=== PATIENT | female | born 1990 | race Caucasian/White ===

== ENCOUNTER 2023-06-16 09:43 | Outpatient (CLI) | payer OTHER, SELFPAY ==
[2023-06-16 12:07] LABS: Glucose 1 Hour PP 50gm Dose 130 mg/dL; Hematocrit 32.2 % (37.0-47.0); Hemoglobin 10.5 g/dL (12.0-15.0)
[2023-06-16 12:50] LABS: HIV 1/2 Ab P24 Ag Result Negative (Negative)
== END 2023-06-16 09:44 | disposition home or self-care (01) ==
LOC: ANHLAB 09:48
PROVIDERS: Visit Provider Obstetrics & Gynecology
DX: Z34.90 Encounter for supervision of normal pregnancy, unspecified, unspecified trimester (principal); Z3A.00 Weeks of gestation of pregnancy not specified
CPT/HCPCS: 36415; 82947; 85014; 85018; 86703; G0432

== ENCOUNTER 2023-08-17 16:43 | Outpatient (CLI) | payer OTHER, SELFPAY ==
[2023-08-17 17:13] VITALS: BP 124/74; PULSE 75
[2023-08-17 17:15] VITALS: BP 116/77; PULSE 73
[2023-08-17 17:30] VITALS: BP 119/75; PULSE 75
[2023-08-17 17:31] LABS: Alanine Aminotransferase 23 U/L (6-35); Albumin Level 3.5 g/dL (3.5-5.1); Alkaline Phosphatase 119 U/L (38-126); Anion Gap 7 mmol/L (8-16); Aspartate Amino Transferase 35 U/L (14-36); Basophils Percent Auto 0.3 % (0.2-1.2); Bilirubin,Total 0.4 mg/dL (0.2-1.3); Blood Urea Nitrogen 9 mg/dL (7-17); Calcium 9.1 mg/dL (8.4-10.2); Carbon Dioxide 24 mmol/L (22-30); Chloride 103 mmol/L (98-107); Eosinophils Absolute Auto 0.1 K/mm3 (0-0.3); Eosinophils Percent Auto 0.6 % (0-4.4); Estimated Glomerular Filt Rate > 60; Glucose 75 mg/dL (65-110); Hematocrit 32.3 % (37.0-47.0); Hemoglobin 10.6 g/dL (12.0-15.0); Immature Granulocyte Absolute 0.11 K/mm3 (0.00-0.031); Immature Granulocyte Percent A 1.3 % (0-0.5); Lymphocytes Percent Auto 18.4 % (18.3-44.2); Mean Corpuscular HGB Conc 32.8 g/dl (32-36); Mean Corpuscular Hemoglobin 33.9 pg (26-34); Mean Corpuscular Volume 103.2 fl (80-100); Mean Platelet Volume 10.2 fl (7.4-10.4); Monocytes Absolute Auto 0.6 K/mm3 (0.1-0.6); Monocytes Percent Auto 7.2 % (2.6-8.5); Neutrophils Absolute Auto 6.3 K/mm3 (1.3-6.7); Neutrophils Percent Auto 72.2 % (45.5-73.1); Platelet Count Result 183 k/mm3 (150-375); Potassium 3.6 mmol/L (3.4-5.0); Red Blood Count 3.13 M/mm3 (4.2-5.4); Red Cell Distribution Width 12.8 % (11.5-14.5); Sodium 134 mmol/L (137-145); Uric Acid 2.6 mg/dL (2.5-7.5); White Blood Count 8.7 K/mm3 (4.5-10.0)
[2023-08-17 17:45] VITALS: BP 121/71; PULSE 76
[2023-08-17 17:46] LABS: Creatinine Urine 24.9 mg/dL; Total Protein Urine Random 12 mg/dL; Ur Ttl Prot Creatinine Ratio 0.48 mg/mg (0-0.20)
[2023-08-17 17:55] LABS: Appearance Urine Clear (Clear); Bacteria Urine None Seen /hpf; Bilirubin Urine Negative (Negative); Blood Urine Negative (Negative); Color Urine Yellow (Yellow); Glucose Urine UA Negative (Negative); Ketones Urine Negative (Negative); Leukocyte Esterase Ur 2+ LEU/UL (NEGATIVE); Need Manual Microscopic Reviewed; Nitrate Urine Negative (Negative); Non Pathogenic Casts 0-2; Protein Urine Negative (Negative); RBC Urine 0-2 /hpf (0-2); Specific Grav Ur 1.005 (1.001-1.035); Squamous Epithelial Cell Urine Occasional /hpf (Few); Urobilinogen Urine 0.2 mg/dL (<2.0); WBC Urine 0-5 /hpf (0-3)
[2023-08-17 17:57] LABS: Add Urine Microscopic? YES
[2023-08-17 18:00] VITALS: BP 115/67; PULSE 78
--- NOTE | 2023-08-17 18:07 | PC.NURSE ---
Called Dr. Diggs with lab results and BPs. Orders received to D/ home and schedule induction for 08/22.
== END 2023-08-17 18:25 | disposition home or self-care (01) ==
LOC: ANHOBOP 16:47 → ANHOBPP 16:47
PROVIDERS: Visit Provider Obstetrics & Gynecology
DX: O13.9 Gestational [pregnancy-induced] hypertension without significant proteinuria, unspecified trimester (principal); Z3A.00 Weeks of gestation of pregnancy not specified
CPT/HCPCS: 36415; 59025; 80053; 81001; 82570; 84156; 84550; 85025; 87086; 99199

== ENCOUNTER 2023-08-22 16:03 | Inpatient (IN) | payer OTHER, SELFPAY ==
[2023-08-22] VITALS (21 sets, daily range): BP systolic 96–129; BP diastolic 50–81; PULSE 73–101; RESP 17; TEMP 36.7; BMI 29.0
--- NOTE | 2023-08-22 16:32 | LDADM ---
This patient, Tanja Walters, was admitted to Labor/Delivery/Recovery 104 on 08/22/23 at 16:03. Plans for labor, pain management and were discussed with patient. Patient/family oriented to hospital policies and general routines including ID bracelet, bed and alarms, visiting hours, pain management, procedures, bathroom and other care routines, personal items, smoking policy, room service/diet and guest tray routines, security routines, and visiting hours. Patient/Family are encouraged to report perceived risks to care and to ask questions if they do not understand what they are told or what they should do. See OBIX for further documentation.
[2023-08-22 16:45] LABS: Basophils Percent Auto 0.2 % (0.2-1.2); Eosinophils Percent Auto 0.1 % (0-4.4); Hematocrit 33.3 % (37.0-47.0); Hemoglobin 11.3 g/dL (12.0-15.0); Immature Granulocyte Absolute 0.07 K/mm3 (0.00-0.031); Immature Granulocyte Percent A 0.8 % (0-0.5); Lymphocytes Absolute Auto 1.41 K/mm3 (0.9-3.2); Lymphocytes Percent Auto 16.6 % (18.3-44.2); Mean Corpuscular HGB Conc 33.9 g/dl (32-36); Mean Corpuscular Hemoglobin 34.5 pg (26-34); Mean Corpuscular Volume 101.5 fl (80-100); Mean Platelet Volume 10.6 fl (7.4-10.4); Monocytes Absolute Auto 0.5 K/mm3 (0.1-0.6); Monocytes Percent Auto 5.9 % (2.6-8.5); Neutrophils Absolute Auto 6.5 K/mm3 (1.3-6.7); Neutrophils Percent Auto 76.4 % (45.5-73.1); Platelet Count Result 195 k/mm3 (150-375); Red Blood Count 3.28 M/mm3 (4.2-5.4); Red Cell Distribution Width 12.6 % (11.5-14.5); White Blood Count 8.5 K/mm3 (4.5-10.0)
[2023-08-22] MEDS: DINOPROSTONE 10 MG VAG INSERT VAGINAL (16:50)
[2023-08-22 16:57] LABS: Alanine Aminotransferase 22 U/L (6-35); Albumin Level 3.6 g/dL (3.5-5.1); Alkaline Phosphatase 127 U/L (38-126); Anion Gap 7 mmol/L (8-16); Aspartate Amino Transferase 34 U/L (14-36); Bilirubin,Total 0.5 mg/dL (0.2-1.3); Blood Urea Nitrogen 9 mg/dL (7-17); Calcium 9.3 mg/dL (8.4-10.2); Carbon Dioxide 20 mmol/L (22-30); Chloride 106 mmol/L (98-107); Estimated CRCL calculation 145 ml/min; Estimated Glomerular Filt Rate > 60; Glucose 109 mg/dL (65-110); Potassium 3.7 mmol/L (3.4-5.0); Sodium 133 mmol/L (137-145)
--- NOTE | 2023-08-22 18:57 | WPDANESEPP ---
Anes - Eval Pre Procedure Procedure: labor epidural Date/Time: 08/22/23 18:57 Pre Op Diagnosis: Induction of Labor Patient Data Age: 33 Gender: F Height: 1.68 m Weight: 81.5 kg Last Vital Signs Pulse 87 08/22/23 18:16 BP 114/71 08/22/23 18:16 O2 Del Method Room Air 08/22/23 16:31 Allergies Allergy/AdvReac Type Severity Reaction Status Date / Time No Known Allergies Allergy Verified 08/22/23 16:27 Home Medications Medication Instructions Recorded Confirmed Type aspirin 81 mg capsule 81 mg PO DAILY 08/22/23 08/22/23 History famotidine 20 mg tablet (Pepcid) 20 mg PO BID 08/22/23 08/22/23 History labetalol 100 mg tablet 100 mg PO BID 08/22/23 08/22/23 History sertraline 50 mg tablet 50 mg PO DAILY 08/22/23 08/22/23 History Laboratory Tests 08/22/23 16:25 WBC 8.5 K/mm3 (4.5-10.0) RBC 3.28 L M/mm3 (4.2-5.4) Hgb 11.3 L g/dL (12.0-15.0) Hct 33.3 L % (37.0-47.0) MCV 101.5 H fl (80-100) MCH 34.5 H pg (26-34) MCHC 33.9 g/dl (32-36) RDW 12.6 % (11.5-14.5) Plt Count 195 k/mm3 (150-375) MPV 10.6 H fl (7.4-10.4) Immature Gran % (Auto) 0.8 H % (0-0.5) Neut % (Auto) 76.4 H % (45.5-73.1) Lymph % (Auto) 16.6 L % (18.3-44.2) [place] % (Auto) 5.9 % (2.6-8.5) Eos % (Auto) 0.1 % (0-4.4) Baso % (Auto) 0.2 % (0.2-1.2) Lymph # (Auto) 1.41 K/mm3 (0.9-3.2) [place] # (Auto) 0.5 K/mm3 (0.1-0.6) Eos # (Auto) 0.0 K/mm3 (0-0.3) Baso # (Auto) 0.0 K/mm3 (0.0-0.1) Abs Immat Gran (auto) 0.07 H K/mm3 (0.00-0.031) Absolute Neuts (auto) 6.5 K/mm3 (1.3-6.7) Absolute Nucleated RBC 0.0 K/mm3 (0.0-0.012) Nucleated RBC % 0.0 % (0.0-0.2) Sodium 133 L mmol/L (137-145) Potassium 3.7 mmol/L (3.4-5.0) Chloride 106 mmol/L (98-107) Carbon Dioxide 20 L mmol/L (22-30) Anion Gap 7 L mmol/L (8-16) BUN 9 mg/dL (7-17) Creatinine 0.50 L mg/dL (0.7-1.0) Estim Creat Clear Calc 145 ml/min Estimated GFR > 60 (59 - ) Glucose 109 mg/dL (65-110) Calcium 9.3 mg/dL (8.4-10.2) Total Bilirubin 0.5 mg/dL (0.2-1.3) AST 34 U/L (14-36) ALT 22 U/L (6-35) Alkaline Phosphatase 127 H U/L (38-126) Total Protein 7.0 g/dL (6.3-8.2) Albumin 3.6 g/dL (3.5-5.1) RPR Pending Blood Type O Positive Antibody Screen Negative Patient hx anesthesia problems: none Family hx anesthesia problems: none Results Review: All pre-operative results and documents have been reviewed as part of the pre-operative evaluation. [facility] Past Medical History Medical History Anxiety FH: HTN (hypertension) IUGR (intrauterine growth restriction) Family History Family History Father Hypertension Cerebrovascular accident Mother Anxiety Depression Grandparent TIA (transient ischemic attack) Lung cancer Sibling Mitral valve prolapse Social History Social History Smoking status: Never smoker Second hand tobacco smoke exposure: No Substance use: never Lack of Transportation: No Lack of Food: Never True Current Housing: I Have Housing Concerned About Future Housing: No Difficulty Paying Gas/Electric Bills: No Difficulty Paying for Meds: No Currently Unemployed: No Education: Associate Degree Difficulty w/ Childcare or Family Care: No Spiritual care concerns: No Exam Day of Procedure 08/22/23 18:57 Patient weight: overweight Heart: regular rate and rhythm Lungs: normal air movement Airway: Mallampati scale Neurological: alert and oriented
[2023-08-22] MEDS: SERTRALINE HCL 50 MG TABLET PO (22:47)
[2023-08-22] MEDS: ACETAMINOPHEN 500 MG TABLET 1000 MG PO (22:55)
[2023-08-22] MEDS: fentaNYL CITRATE INJ (*CRX) 100 MCG/2 ML VIAL 50 MCG IV PUSH (23:03)
[2023-08-23] VITALS (223 sets, daily range): BP systolic 83–150; BP diastolic 45–101; PULSE 67–140; RESP 15–18; TEMP 36.2–37.2; O2SAT 93–100
[2023-08-23] MEDS: fentaNYL CITRATE INJ (*CRX) 100 MCG/2 ML VIAL 50 MCG IV PUSH (03:53)
[2023-08-23] MEDS: LACTATED RINGERS 1,000 ML 125 ML IV CONT ×3 (05:12→13:04)
[2023-08-23] MEDS: OXYTOCIN 30 UNITS/NS 500 ML 30 UNITS/500 ML BAG 6 UNITS IV CONT (05:13)
[2023-08-23] MEDS: fentaNYL CITRATE INJ (*CRX) 100 MCG/2 ML VIAL IV PUSH (05:32)
[2023-08-23] MEDS: PHENYLEPHRINE 1,000 MCG/10 ML SYRINGE 100 MCG IV PUSH (08:06)
--- NOTE | 2023-08-23 08:44 | PM.IMHP ---
H&P: HPI History of Present Illness Date/Time: 08/23/23 08:44 Chief Complaint: Here for induction of labor Narrative: 33 y/o G1 at 37 6/7 weeks with CHTN, now with IUGR, here for induction of labor. GBS neg. Had Cervidil overnight, has been withdrawn, now receiving oxytocin. Comfortable with epidural. Review of Systems Review of Systems: All systems reviewed & are unremarkable except as noted in HPI and below PMFSH Past Medical History Medical History (Updated 08/23/23 @ 08:50 by Ruperto Diggs MD) Anxiety FH: HTN (hypertension) IUGR (intrauterine growth restriction) Family History Family History Father Hypertension Cerebrovascular accident Mother Anxiety Depression Grandparent TIA (transient ischemic attack) Lung cancer Sibling Mitral valve prolapse Social History Social History Smoking status: Never smoker Second hand tobacco smoke exposure: No Substance use: never Lack of Transportation: No Lack of Food: Never True Current Housing: I Have Housing Concerned About Future Housing: No Difficulty Paying Gas/Electric Bills: No Difficulty Paying for Meds: No Currently Unemployed: No Education: Associate Degree Difficulty w/ Childcare or Family Care: No Spiritual care concerns: No Meds Home Medications and Allergies Home Medications Medication Instructions Recorded Confirmed Type aspirin 81 mg capsule 81 mg PO DAILY 08/22/23 08/22/23 History famotidine 20 mg tablet (Pepcid) 20 mg PO BID 08/22/23 08/22/23 History labetalol 100 mg tablet 100 mg PO BID 08/22/23 08/22/23 History sertraline 50 mg tablet 50 mg PO DAILY 08/22/23 08/22/23 History Allergies Allergy/AdvReac Type Severity Reaction Status Date / Time No Known Allergies Allergy Verified 08/22/23 16:27 Vital Signs Vital Signs - 24 hr 08/22/23 16:28 08/22/23 16:30 08/22/23 16:46 Temperature Pulse Rate 98 100 101 H Respiratory Rate Blood Pressure 128/81 125/78 120/71 Pulse Oximetry Oxygen Delivery 08/22/23 17:01 08/22/23 17:16 08/22/23 17:31 Temperature Pulse Rate 87 86 88 Respiratory Rate Blood Pressure 129/74 118/67 114/71 Pulse Oximetry Oxygen Delivery 08/22/23 17:46 08/22/23 18:01 08/22/23 18:16 Temperature Pulse Rate 90 86 87 Respiratory Rate Blood Pressure 109/69 112/73 114/71 Pulse Oximetry Oxygen Delivery 08/22/23 19:01 08/22/23 19:00 08/22/23 19:31 Temperature 36.7 C Pulse Rate 89 82 Respiratory Rate 17 Blood Pressure 119/80 115/53 L Pulse Oximetry Oxygen Delivery 08/22/23 20:01 08/22/23 20:31 08/22/23 21:01 Temperature Pulse Rate 78 77 90 Respiratory Rate Blood Pressure 96/60 L 111/50 L 113/74 Pulse Oximetry Oxygen Delivery 08/22/23 21:31 08/22/23 22:01 08/22/23 22:31 Temperature Pulse Rate 82 91 79 Respiratory Rate Blood Pressure 123/70 117/64 103/60 Pulse Oximetry Oxygen Delivery 08/22/23 23:01 08/22/23 23:31 08/23/23 00:01 Temperature Pulse Rate 79 73 77 Respiratory Rate Blood Pressure 117/72 120/70 106/49 L Pulse Oximetry Oxygen Delivery 08/23/23 00:31 08/23/23 01:01 08/23/23 01:31 Temperature Pulse Rate 91 73 89 Respiratory Rate Blood Pressure 101/45 L 100/52 L 111/68 Pulse Oximetry Oxygen Delivery 08/23/23 02:01 08/23/23 02:31 08/23/23 03:08 Temperature Pulse Rate 76 78 89 Respiratory Rate Blood Pressure 106/51 L 102/52 L 150/101 H Pulse Oximetry Oxygen Delivery 08/23/23 03:10 08/23/23 03:31 08/23/23 04:01 Temperature Pulse Rate 84 75 82 Respiratory Rate Blood Pressure 138/73 121/77 121/57 L Pulse Oximetry Oxygen Delivery 08/23/23 03:52 08/23/23 01:00 08/22/23 23:00 Temperature 36.6 C 36.8 C 36.7 C Pulse Rate Respiratory Rate 15 Blood Pressure Pulse Oximetry
[2023-08-23] MEDS: SODIUM CHLORIDE 0.9% IV 300 ML 600 ML I-UTERINE (10:30)
[2023-08-23] MEDS: SODIUM CHLORIDE 0.9% IV 1,000 ML 150 ML I-UTERINE (11:30)
--- NOTE | 2023-08-23 13:06 | PM.OBPNLAB ---
Pain Control Date/time seen: 08/23/23 13:06 Comments: Comfortable. Pelvic Exam Dilation (cm): 8 Effacement (%): 100 station: 0 Contractions Contraction frequency: 3 Status Comments: Variable decelerations, resolved with amnioinfusion and position change. Assessment and Plan Plan: continuous present management
[2023-08-23] MEDS: ONDANSETRON INJ 4 MG/2 ML VIAL IV PUSH (13:39)
--- NOTE | 2023-08-23 16:57 | P.PCNOB_ITS ---
OB - Vaginal Delivery Note Procedure Delivery date: 08/23/23 Events: Chronic Hypertension and Intrauterine Growth Restriction (IUGR) Induction method: Per Cervidil Protocol Delivery augmentation: Rupture of Membranes and Pitocin Delivery monitor: External FHT, External Uterine and Internal Uterine Route of delivery: Episiotomy description: None Laceration Description: Perineal - 2nd Degree Delivery repair: vicryl (3-0) Specimen: Yes (cord blood, placenta) Quantitative Blood Loss (ml): 85 Anesthesia type: Epidural Disposition: PACU Complications: None Narrative: 33 y/o G1 at 37 6/7 weeks gestation who presented to the hospital for induction of labor. Cervidil was placed overnight, then withdrawn the next morning. Oxytocin was administered intravenously. Amniotomy was performed with return of clear fluid. She received an epidural for pain control. Her labor progressed and her cervix dilated completely. She pushed with good effort and delivered th e 's head to the perineum. A loose nuchal cord was splinted and the body delivered. The cord was reduced and the nose and mouth were bulb suctioned. After a delay, the cord was clamped and cut. The infant was handed off the field. Cord blood was collected. The placenta delivered spontaneously and was grossly normal in appearance. The usual 3 vessel cord was noted. A second degree midline perineal laceration was sustained. This was reapproximated using 3 0 Vicryl in the usual layered fashion. Excellent hemostasis resulted as did excellent reapproximation of the normal anatomy. Needle and instrument counts were correct. The patient was taken to recovery room in stable condition. The infant went to the nursery in stable condition. I was present and scrubbed for the entire delivery. [place] Baby Date of : 08/23/23 Time of : 16:39 Weeks of gestation at delivery: 37 gender: Female Weight (pounds): 5 Weight (ounces): 15 presentation: vertex position: Right Occiput Anterior Placenta delivery description: Spontaneous and Normal Configuration Cord Vessel Description: 3 Vessels, Nuchal Cord (x1) and Delayed Cord Clamping score one minute: 8 score five minutes: 9
--- NOTE | 2023-08-23 16:59 | P.DS_ITS ---
DS: Admitting Diagnosis Discharge Date 08/25/23 Admitting Diagnosis IUP at 37 6/7 weeks CHTN IUGR DS: Discharge Diagnosis Discharge Diagnosis (1) (normal spontaneous vaginal delivery): Code(s): O80 - Encounter for full-term uncomplicated delivery Status: Acute (2) Chronic hypertension affecting : Code(s): O10.919 - Unspecified pre-existing hypertension complicating , unspecified trimester Status: Acute (3) IUGR (intrauterine growth restriction): Status: Acute OB - DS: Summary OB Procedures : PIH Mgmt OB Procedures Intrapartum: Spontaneous Vag Delivery OB Procedures: : None Peripartum Data Laceration Description: Perineal - 2nd Degree Episiotomy description: None Time Spent with Patient Time attestation: Total time spent providing and/or coordinating discharge services: DS: Data Data Completed and Pending Labs on day of discharge: Labs from last 24 hours 08/22/23 16:25 Blood Type O Positive Antibody Screen Negative Discharge Plan Discharge Attending physician on discharge: Ruperto Diggs Discharging Clinician: Ruperto Diggs Patient Disposition: Home, Self-Care Activity: pelvic rest Diet: regular Discharge Instructions: Call or return if temperature above 100.4? F, increased abdominal pain, increased vaginal bleeding or any new problems. Stand Alone Forms: General Discharge Information Follow-up/Referrals: Ruperto Diggs MD [Physician] - 6 Weeks Discharge Medications: New hydrocodone-acetaminophen 5-325 mg tablet 1 tablet PO Q6H PRN (Reason: pain) Qty: 20 0RF ibuprofen 600 mg tablet 600 mg PO Q6H PRN (Reason: cramps) Qty: 30 0RF Continued famotidine [Pepcid] 20 mg Tablet 20 mg PO BID labetalol 100 mg tablet 100 mg PO BID sertraline 50 mg tablet 50 mg PO DAILY Discontinued aspirin 81 mg Capsule 81 mg PO DAILY Date of admission: 08/22/23 16:03 Primary Care Provider: PHYSICIAN,SMALL PARTS SHAPER OPERATOR Admitting Provider: Ruperto Diggs Attending physician on admission: Ruperto Diggs Condition: Stable
[2023-08-23] MEDS: ACETAMINOPHEN 325 MG TABLET 650 MG PO ×2 (17:16→23:52)
[2023-08-23] MEDS: OXYTOCIN 30 UNITS/NS 500 ML 30 UNITS/500 ML BAG 125 UNITS IV CONT (17:16)
[2023-08-23] MEDS: BENZOCAINE 20% AER SPR (*SP) 56 GM CAN 1 SPRAY TOPICAL (17:47)
[2023-08-23] MEDS: WITCH HAZEL 40 PADS 1 PAD TOPICAL (17:47)
[2023-08-23] MEDS: IBUPROFEN 600 MG TABLET PO (20:38)
[2023-08-23] MEDS: LANOLIN (LANSINOH) 7.5 GM CREAM 1 APPLIC TOPICAL (20:59)
[2023-08-23] MEDS: SERTRALINE HCL 50 MG TABLET PO (21:03)
[2023-08-24] VITALS (8 sets, daily range): BP systolic 107–134; BP diastolic 62–89; PULSE 66–87; RESP 16–18; TEMP 36.1–37.1; O2SAT 97–100
[2023-08-24] MEDS: IBUPROFEN 600 MG TABLET PO ×3 (03:33→20:30)
[2023-08-24 04:37] LABS: Hematocrit 34.4 % (37.0-47.0); Hemoglobin 11.6 g/dL (12.0-15.0)
[2023-08-24] MEDS: MULTIVIT/MIN/PREN/FOL AC/IRON TABLET 1 TAB PO (07:37)
[2023-08-24] MEDS: ACETAMINOPHEN 325 MG TABLET 650 MG PO ×2 (07:38→13:15)
[2023-08-24] MEDS: DOCUSATE SODIUM 100 MG CAPSULE PO ×2 (07:39→15:56)
[2023-08-24] MEDS: LABETALOL HCL 100 MG TABLET PO ×2 (09:12→21:58)
--- NOTE | 2023-08-24 13:13 | PM.OBPNVD ---
OB - PN: Subj Subjective Date/time seen: 08/24/23 13:13 Narrative: Pain OK. OB - PN: Obj Data Labs 08/24/23 03:25 08/22/23 16:25 Labs: Laboratory Results - last 24 hr 08/24/23 03:25 Hgb 11.6 L Hct 34.4 L OB - PN A/P Plan day: 1 Comments: A: PPD#1, doing well. P: Routine care. Exam Psych: Other: AVSS ABD soft, nontender, fundus firm EXT nontender
[2023-08-24 14:30] LABS: Rapid Plasma Reagin Non-Reactive (NonReactive)
--- NOTE | 2023-08-24 15:06 | WPDANLDPN2 ---
Anes-Prog Note L&D Date/Time: 08/24/23 15:06 Comfortable throughout: labor and delivery Neuraxial method: epidural Epidural/Spinal procedure site: clean & non-tender Neuro status: Neuro function grossly intact. Cardiovascular status: normal Respiratory status: normal Airway patency: baseline Mental status: baseline Post-Op hydration status: normal Vital Signs: Last Vital Signs Temp 98.5 F 08/24/23 11:56 Pulse 77 08/24/23 11:56 Resp 16 08/24/23 11:56 BP 107/62 08/24/23 11:56 Pulse Ox 97 08/24/23 11:56 O2 Del Method Room Air 08/23/23 20:52 Pain score (VAS): 0/10 I/O: Intake & Output 08/23/23 08/24/23 08/24/23 23:59 07:59 15:59 Intake Total 500 Balance 500 Post-procedural complaints: none Patient feedback: Patient satisfied with anesthetic care.
[2023-08-24] MEDS: HYDROcodone/acetaminophen (*CRX) 5-325 MG TABLET 1 TAB PO (15:55)
--- NOTE | 2023-08-24 15:57 | PC.NURSE ---
1430 Introductions were made, then consulted with patient to assess needs related to . Mother led the conversation with her?plans to feed?her and the?experience so far. Encouraged understanding of the benefits of skin to skin (demonstrating unwrapping infant and placing upright on her chest), stimulating with massage touch, changing positions to encourage wakefulness, how to watch for early feeding cues, responsive feeding, feeding on demand (aiming for 8-12 times in 24 hours, about every 2-3 hours), milk production, building/maintaining a milk supply, duration of feeding, signs of adequate intake/output and how to record on the feeding sheet. Mother works well with her with encouragement and education. Reviewed positioning and ear, shoulder, hip alignment, supporting the breast to facilitate a deep latch, asymmetrical latch (off-center), leading with the chin with a big, open, wide gape and body close to mother. Infant latched optimally to the both breasts in cross cradle position. Education given to the mother of how to visualize the suckling (with good rocking jaw motion), swallows (dropping of the lower jaw) and how to listen for drinking at the breast (the ka sound). Infant was able to maintain latch without pain to mother protecting the nipple with optimal positioning and latching. Reviewed comfort measures of healing with a warm, wet washcloth to rinse breast, then leave open to air-dry, good handwashing when or touching the breast/nipples to prevent infection. Mother voiced understanding of skin to skin, stimulating with massage touch, responsive feedings, hand expressed colostrum, talking to infant to encourage if it has been 2 -2.5 hours since the start of the last , to call if does not latch, or if there is discomfort with . Resources used for education were facilitated with the mom and baby guide. Inpatient resources provided with business card, feeding sheet, name written on the communication board, and the mom/baby guide. Parents voiced understanding of information, demonstrated learning and will call if there is a request for assistance. Reported to the Primary RN.
[2023-08-24] MEDS: SERTRALINE HCL 50 MG TABLET PO (21:58)
[2023-08-25] MEDS: ACETAMINOPHEN 325 MG TABLET 650 MG PO (05:11)
[2023-08-25] MEDS: HYDROcodone/acetaminophen (*CRX) 5-325 MG TABLET 1 TAB PO ×2 (07:52→11:54)
[2023-08-25] MEDS: IBUPROFEN 600 MG TABLET PO (07:52)
[2023-08-25 08:08] VITALS: BP 106/63; PULSE 73; RESP 18; TEMP 36.7; O2SAT 99
[2023-08-25 08:50] VITALS: PULSE 73
[2023-08-25] MEDS: MULTIVIT/MIN/PREN/FOL AC/IRON TABLET 1 TAB PO (08:50)
[2023-08-25] MEDS: DOCUSATE SODIUM 100 MG CAPSULE PO (08:50)
[2023-08-25] MEDS: LABETALOL HCL 100 MG TABLET PO (08:50)
--- NOTE | 2023-08-25 08:56 | PM.OBPNVD ---
OB - PN: Subj Subjective Date/time seen: 08/25/23 08:56 Narrative: Pain OK. Would like to go home. OB - PN: Obj Data Labs 08/24/23 03:25 08/22/23 16:25 Labs: Laboratory Results - last 24 hr 08/22/23 16:25 RPR Non-reactive OB - PN A/P Plan Comments: A: PPD#2, doing well. P: Home to f/u 6 weeks. Exam Psych: Other: AVSS ABD soft, nontender, fundus firm EXT nontender
--- NOTE | 2023-08-25 10:40 | PC.NURSE ---
Patient viewed the discharge video Mother & Baby Care, The First Two Weeks . Patient was given the opportunity and encouraged to ask questions. Patient verbalized understanding of information shared and has been given the mother/baby guide for home reference.
[2023-08-26 12:05] VITALS: BP 127/75; PULSE 91; RESP 18; TEMP 37.1; O2SAT 99
== END 2023-08-25 12:50 | disposition home or self-care (01) | DRG 807 ==
LOC: ANHLDR 08-23 17:01 → ANHOB2 08-23 20:48
PROVIDERS: Admitting Provider Obstetrics & Gynecology; Visit Provider Obstetrics & Gynecology
DX: O16.4 Unspecified maternal hypertension, complicating childbirth (principal); Z37.0 Single live birth; O36.5930 Maternal care for other known or suspected poor fetal growth, third trimester, not applicable or unspecified; O99.344 Other mental disorders complicating childbirth; F41.9 Anxiety disorder, unspecified; O70.1 Second degree perineal laceration during delivery; O69.81X0 Labor and delivery complicated by cord around neck, without compression, not applicable or unspecified; Z3A.37 37 weeks gestation of pregnancy
CPT/HCPCS: 36415; 80053; 85014; 85018; 85025; 86592; 86850; 86900; 86901; 88307; A9270; J2371; J2405; J2590; J2795; J3010; J7030; J7120

== ENCOUNTER 2025-01-23 08:51 | Outpatient (CLI) | payer OTHER, SELFPAY ==
--- OUTSIDE RECORDS SUMMARY | 2025-01-23 08:57 | XMS_ITS | Encounter Summary ---
Author Organization [facility] Address [address] [place] [address] Care Team Providers Care Continuous Dryout Operator Helper Name Role Phone Unavailable Primary Care Provider Unavailabl e Encounter Details Date Type Department Care Team (Late st Contact Info) Description 01/13/2016 Lab Requisition [facility] [address] [place] [address] Unknown, Provider Social History Tobacco Use Types Packs/Day Years Used Date Smoking Tobacco: Never Smokeless Tobacco: Never Alcohol Use Standard Drinks/Week Comments No 0 (1 standard drink = 0.6 oz pur e alcohol) Comments No Sex and Gender Information Value Date Recorded Sex Assigned at Not on file Legal Sex Female 1:15 AM CDT Gender Identity Not on file Sexual Orientation Not on file documented as of this encounter Plan of Treatment Not on file documented as of this encounter Procedures Procedure Name Priority Date/Time Associated Diagnosis Comments VARICELLA ZOSTER ANTIBODY IGG Routine 01/13/2016 11:20 AM CDT documented in this encounter Results * VARICELLA ZOSTER ANTIBODY IGG (01/13/2016 11:20 AM CDT) Varicella zoster Virus Antibody IgG 1119 Immune >165 index 01/15/2016 12:17 PM CDT [facility] ([facility]) Comment: Negative <135 Equivocal 135 - 165 Positive >165 A positive result generally indicates exposure to the pathogen or administration of specific immunoglobulins, but it is not indication of active infection or stage of disease. Blood specimen (specimen) BLOOD SPECIMEN / Unknown Venipuncture / Unknown 01/13/2016 11:20 AM CDT 01/13/2016 5:27 PM CDT Narrative [facility] ([facility]) - 01/15/2016 12:17 PM CDT Performed at: - [address] [id number] Hem Marker: Jeovanny Donaldson PhD, Phone: [phone] us Provider Unknown LAB - CHEMISTRY ORDERABLES Katia l [facility] [address] [place] [id number] documented in this encounter Visit Diagnoses Not on filedocumented in this encounter
--- OUTSIDE RECORDS SUMMARY | 2025-01-23 08:57 | XMS_ITS | Clinical Summary ---
Author Organization [facility] [employer] Address [address] [place] [address] Care Team Providers Care Instrument Repairer Helper Name Role Phone Unavailable Primary Care Provider Unavailabl e Source Comments [facility] [employer],non-owned Affiliates and Associated Physician Practices is amultiple site organization consisting of ambulatory clinics and hospital sitesin [place], [place], [place] and [place]. This disclosure is being madepursuant to the Care Everywhere program and may not contain all information available regarding this patient. Last updated 18.[employer] Allergies No known active allergies Medications * Be aware that medications may not be up to date on this document. Alwaysverify current medications with the patient. levonorgestrel- ethinyl estradiol (LUTERA) 0.1-20 MG-MCG tablet Take 1 Tab by mouth once daily 1 Packet 11 7 Active phenazopyridine (PYRIDIUM) 200 MG tabletIndicatio ns:Bladder Mucosa Irritation Take 1 tablet by mouth 3 times daily as needed Reasons: Bladder Lining Irritation 15 tablet 8 Active Additional Information Patient not taking.Reported on 06/30/2018 Multiple Vitamins-Minera ls (MULTIVITAMIN ADULT PO) Active Active Problems Problem Noted Date Diagnosed Date Anxiety 10/08/2014 Family History Medical History Relation Name Comments Hypertension Father COPD - Chronic Obstructive Pulmonary Disease Maternal Grandfather Cancer - Other Maternal Grandfather lung Diabetes Maternal Uncle 1 Heart Disease Maternal Uncle 2 Depression Mother Thyroid Disease Sister Relation Name Status Comments Father Maternal Grandfather Maternal Uncle 1 Maternal Uncle 2 Mother Sister Social History Tobacco Use Types Packs/Day Years Used Date Smoking Tobacco: Never Smokeless Tobacco: Never Alcohol Use Standard Drinks/Week Comments No 0 (1 standard drink = 0.6 oz pur e alcohol) Comments No Sex and Gender Information Value Date Recorded Sex Assigned at Not on file Legal Sex Female 1:15 AM CDT Gender Identity Not on file Sexual Orientation Not on file Last Filed Vital Signs Vital Sign Reading Time Taken Comments Blood Pressure 118/70 06/30/2018 3:03 PM CDT Pulse 102 06/30/2018 3:03 PM CDT Temperature 36.7 C (98.1 F) 06/30/2018 3:03 PM CDT Respiratory Rate 16 06/30/2018 3:03 PM CDT Oxygen Saturation 100% 12/09/2016 10:46 AM CDT Inhaled Oxygen Concentration - - Weight 59 kg (130 lb) 06/30/2018 3:03 PM CDT Height 168.9 cm (5' 6.5 ) 06/30/2018 3:03 PM CDT Body Mass Index 20.67 06/30/2018 3:03 PM CDT Plan of Treatment Health Maintenance Due Date Last Done Comments HIV SCREENING 2006 HEPATITIS C SCREENING 06/12/2009 DTAP/TDAP/TD VACCINES (1 - Tdap) 2010 HEPATITIS B VACCINE (1 of 3 - 19+ 3-dose series) 2010 PAP SMEAR 01/13/2020 01/12/2017, 11/11/2012 (Previously completed) COVID-19 VACCINE ( - 2023-2 5 season) 2024 DEPRESSION SCREENING 09/13/2024 INFLUENZA VACCINE (Season Ended) 2025 ZOSTER VACCINE (1 of 2) 2041 HIB VACCINE Aged Out No longer eligi ble based on patient's age to complete this topic HPV VACCINE Aged Out No longer eligi ble based on patient's age to complete this topic MENINGOCOCCAL (Group B) VACCINE SHARED DECISION-MAKING Aged Out No longer eligible based on patient's age to complete this topic MENINGOCOCCAL GROUPS A/C/Y/W VACCINE Aged Out No longer eligible b ased on patient's age to complete this topic PNEUMOCOCCAL VACCINE Aged Out No long er eligible based on patient's age to complete this topic Procedures Procedure Name Priority Date/Time Associated Diagnosis Comments PAP LB CT+GC RFLX HPV HR IF ASCU Routine 01/12/2017 10:03 AM CDT Routine gynecological examination from Last 3 Months or Most Recently Relevant to Health Maintenance Results * PAP SMEAR LB CT+GC RFLX HPV ASCU (PO REF) (01/12/2017 10:03 AM CDT) Diagnosis [facility] ACCOUNT BILL Comment:NEGATIVE FOR INTRAEP ITHELIAL LESION AND MALIGNANCY. Specimen Adequacy [facility] ACCOUNT BILL Comment:Satisfactory for don luation. No endocervical component is identified. Clinician Provided ICD10 [facility] ACCOUNT BILL Comment:Z01.419 Performed by [facility] ACCOUNT BILL Comment:Lotus Morris, Principal Law Clerk (ASCP) Comment . [facility] ACCOUNT BILL Note [facility] ACCOUNT BILL Comment: The Pap smear is a screening test designed to aid in the detection of premalignant and malignant conditions of the uterine cervix. It is not a diagnostic procedure and should not be used as the sole means of detecting cervical cancer. Both false-positive and false-negative reports do occur. . Note [facility] ACCOUNT BILL Comment: The HPV DNA reflex criteria were not met with this specimen result therefore, no HPV testing was performed. . Chlamydia DEBBIE Thin Prep Negative Negative [facility] ACCOUNT BILL GC DNA Probe Negative Negative [facility] ACCOUNT BILL MICROSCOPIC CYTOLOGIC EXAMINATION OF SMEAR OF SPECIMEN FROM FEMALE GENITAL TRACT PREPARED USING PAPANICOLAOU TECHNIQUE / Unknown 01/12/2017 10:03 AM CDT 01/12/2017 Narrative [facility] ACCOUNT BILL - 01/15/2017 9:18 AM CDT Source.............Cervix;Endocervix LMP / Prev Treat...[id number] No. of containers..01 CYTYC Thin Prep Vial Resulting Agency Comment [facility] [place] [address] [facility] [place] [phone] us Keenan Goode MD LAB - PATHOLOGY/CYTOLOGY ORD ERABLES Final Result [facility] ACCOUNT BILL [address] [place] [address] from Last 3 Months or Most Recently Relevant to Health Maintenance Insurance [employer] [facility] [employer] SELF PAY NO INSURANCE Member Subscriber Plan / Payer (Ef fective for All Dates) Name:Tanja Walters Member ID:Not on file Relation to Subscriber:Not on file Name:TANJA WALTERS Subscriber ID:Not on file Address: [address] [place] [address] Payer ID:Not on file Group ID:Not on file Type:Self Pay Address: [place], [place] [address] [place] [address]
[2025-01-23 11:11] LABS: Hematocrit 32.9 % (37.0-47.0)
[2025-01-23 11:25] LABS: Glucose 1 Hour PP 50gm Dose 152 mg/dL
[2025-01-23 11:47] LABS: Vitamin D 25 Hydroxy 45.2 ng/mL
[2025-01-23 11:55] LABS: Syphilis IgG/IgM Antibody Negative (Negative)
[2025-01-23 12:12] LABS: HIV 1/2 Ab P24 Ag Result Negative (Negative)
== END 2025-01-23 08:52 | disposition home or self-care (01) ==
LOC: ANHLAB 08:53
PROVIDERS: Visit Provider Obstetrics & Gynecology
DX: Z34.90 Encounter for supervision of normal pregnancy, unspecified, unspecified trimester (principal)
CPT/HCPCS: 36415; 82306; 82947; 85014; 85018; 86593; 86703; G0432

== ENCOUNTER 2025-02-16 07:31 | Outpatient (CLI) | payer OTHER, SELFPAY ==
--- OUTSIDE RECORDS SUMMARY | 2025-02-16 07:35 | XMS_ITS | Clinical Summary ---
Author Organization [facility] [employer] Address [address] [facility] [address] Care Team Providers Care Induction Brazer Name Role Phone Unavailable Primary Care Provider Unavailabl e Source Comments [facility] [employer],non-owned Affiliates and Associated Physician Practices is amultiple site organization consisting of ambulatory clinics and hospital sitesin [place], [place] and [place]. This disclosure is being madepursuant to the Care Everywhere program and may not contain all information available regarding this patient. Last updated [email or web address] Allergies No known active allergies Medications * [...] 3:03 PM CDT Height 168.9 cm (5' 6.5) 06/30/2018 3:03 PM CDT Body Mass Index [...] Performed by [facility] ACCOUNT BILL Comment:Lotus Morris, Community Health Promoter (ASCP) Comment . [facility] ACCOUNT BILL Note [...] 9:18 AM CDT Source.............Cervix;Endocervix LMP / Prev Treat...[id number] No. of containers..01 CYTYC Thin Prep Vial Resulting Agency Comment [facility] [place] [address] [facility] [place] [id number] us Keenan Goode MD LAB - PATHOLOGY/CYTOLOGY ORD ERABLES Final Result [facility] ACCOUNT BILL [address] [place] [address] from Last 3 Months or Most Recently Relevant to Health Maintenance Insurance [employer] [facility] SELF PAY NO INSURANCE Member Subscriber Plan / Payer (Ef fective for All Dates) Name:Tanja Walters Member ID:Not on file Relation to Subscriber:Not on file Name:TANJA WALTERS Subscriber ID:Not on file Address: [address] [place] [id number] Payer ID:Not on file Group ID:Not on file Type:Self Pay Address: [facility] [address] [employer] [place] [address]
--- OUTSIDE RECORDS SUMMARY | 2025-02-16 07:35 | XMS_ITS | Encounter Summary ---
Author Organization [facility] Address [address] [place] [address] Care Team Providers Care Marketing Project Coordinator Name Role Phone Unavailable Primary Care Provider Unavailabl e Encounter Details Date Type Department Care Team (Late st Contact Info) Description 01/13/2016 Lab Re[address] [facility] [address] [place] [address] Unknown, Provider Social History Tobacco Use Types [...] >165 index 01/15/2016 12:17 PM CDT [facility] ([facility]) Comment: Negative <135 Equivocal 135 - 165 Positive >165 A positive result generally indicates exposure to the pathogen or administration of specific immunoglobulins, but it is not indication of active infection or stage of disease. Blood specimen (specimen) BLOOD SPECIMEN / Unknown Venipuncture / Unknown 01/13/2016 11:20 AM CDT 01/13/2016 5:27 PM CDT Narrative [facility] ([facility]) - 01/15/2016 12:17 PM CDT Performed at: - [address] [id number] Senior Human Resources Representative: Jeovanny Donaldson PhD, Phone: [phone] us Provider Unknown LAB - CHEMISTRY ORDERABLES Katia l Result [facility] ([facility]) [address] [place] [address] documented in this encounter Visit Diagnoses Not on filedocumented in this encounter
[2025-02-16 08:07] LABS: Glucose Fasting Gestational 101 mg/dL (>/=95)
[2025-02-16 10:11] LABS: Glucose 1 Hour Gest 213 mg/dL (>/=180)
[2025-02-16 11:03] LABS: Glucose 2 Hour Gest 162 mg/dL (>/= 155)
[2025-02-16 11:48] LABS: Glucose 3 Hour Gest 94 mg/dL (>/=140)
== END 2025-02-16 07:32 | disposition home or self-care (01) ==
LOC: ANHLAB 07:33
PROVIDERS: Visit Provider Obstetrics & Gynecology
DX: R73.01 Impaired fasting glucose (principal)
CPT/HCPCS: 36415; 82951; 82952

== ENCOUNTER 2025-03-12 15:16 | Outpatient (CLI) | payer OTHER, SELFPAY ==
--- NOTE | ~2025-03-12 | US_ITS ---
EXAMINATION: US OB follow up DATE: 03/12/2025 15:36 INDICATION: Encounter for screening for growth. Large for gestational age during thir d trimester of . TECHNIQUE: Real-time ultrasound of the pelvis was performed. The interpreting radiologist was not pre sent for the study. COMPARISON: None. FINDINGS: There is a single living fetus in vertex presentation. The placenta is posterior and not low-lying. heart rate is 148 beats per minute (bpm). The amniotic fluid index is 23.5 cm, which is normal . (5th%-95%: 7.5-24.9 cm at C6 weeks estimated gestational age). The following biometric data were obtained: BPD: 8.8 cm -> 35 weeks 5 days Head circumference: 32.2 cm -> 36 weeks 3 days Abdominal circumference: 32.3 cm -> 36 weeks 1 days Femur length: 6.9 cm -> 35 weeks 3 days These measurements are concordant. Head circumference to abdominal circumference ratio: 1.00 (normal range 0.93-1.08). Estimated weight: 2812 g (+/-) 422 g or 6 lbs. 3 oz. (+/-) 15 oz. IMPRESSION: 1. Single living fetus in vertex presentation with heart rate of 148 bpm. 2. Gestational age by ultrasound of 36 weeks 0 day(s) +/- 2 week(s) 4 day(s) with ultrasound estimate d date of delivery (ALIN) of 04/09/2025. Estimated weight is 43rd percentile by Hadlock criteria when 04/07/2025 is used as the ALIN. Please correlate with clinical information or earlier ultrasounds for most accurate ALIN. Reviewed, dictated and finalized at location B. IMPRESSION: 1. Single living fetus in vertex presentation with heart rate of 148 bpm. 2. Gestational age by ultrasound of 36 weeks 0 day(s) +/- 2 week(s) 4 day(s) wi th ultrasound estimated date of delivery (ALIN) of 04/09/2025. Estimated we ight is 43rd percentile by Hadlock criteria when 04/07/2025 is used as the ALIN. Please correlate with clinical information or earlier ultrasounds for most accu rate ALIN.
== END 2025-03-12 15:17 | disposition home or self-care (01) ==
LOC: MICIMG 15:17
PROVIDERS: PCP Obstetrics & Gynecology; Visit Provider Obstetrics & Gynecology
DX: Z36.4 Encounter for antenatal screening for fetal growth retardation (principal)
CPT/HCPCS: 76816

== ENCOUNTER 2025-03-13 09:43 | Outpatient (CLI) | payer OTHER, SELFPAY ==
--- OUTSIDE RECORDS SUMMARY | 2025-03-13 09:57 | XMS_ITS | Encounter Summary ---
Author Organization [facility] Address [address] [facility] [place] [address] Care Team Providers Care Self Defense Instructor Name Role Phone Unavailable Primary Care Provider Unavailabl e Encounter Details Date Type Department Care Team (Late st Contact Info) Description 01/13/2016 Lab Requisition [facility] [address] [place] [address] Unknown, Provider Social History Tobacco Use Types [...] >165 index 01/15/2016 12:17 PM CDT [facility] ([facility]) Comment: Negative <135 Equivocal 135 - 165 Positive >165 A positive result generally indicates exposure to the pathogen or administration of specific immunoglobulins, but it is not indication of active infection or stage of disease. Blood specimen (specimen) BLOOD SPECIMEN / Unknown Venipuncture / Unknown 01/13/2016 11:20 AM CDT 01/13/2016 5:27 PM CDT Narrative [facility] ([facility]) - 01/15/2016 12:17 PM CDT Performed at: - [address] [id number] Barker Peeler: Jeovanny Donaldson PhD, Phone: [phone] us Provider Unknown LAB - CHEMISTRY ORDERABLES Katia l Result [facility] ([facility]) [address] [place] [address] documented in this encounter Visit Diagnoses Not on filedocumented in this encounter
--- OUTSIDE RECORDS SUMMARY | 2025-03-13 09:57 | XMS_ITS | Clinical Summary ---
Author Organization [facility] [employer] Address [address] [facility] [place] [address] Care Team Providers Care Ribbon Weaver Name Role Phone Unavailable Primary Care Provider Unavailabl e Source Comments [facility] [employer],non-owned Affiliates and Associated Physician Practices is amultiple site organization consisting of ambulatory clinics and hospital sitesin [place], [place], [place] and [place]. This disclosure is being madepursuant to the Care Everywhere program and may not contain all information available regarding this patient. Last updated 18.[employer] Allergies No known active allergies Medications * [...] Performed by [facility] ACCOUNT BILL Comment:Lotus Morris, Device Repair Technician (ASCP) Comment . [facility] ACCOUNT BILL Note [...] 9:18 AM CDT Source.............Cervix;Endocervix LMP / Prev Treat...[id number] No. of containers..01 CYTYC Thin Prep Vial Resulting Agency Comment [facility] [place] [address] [facility] [place] [phone] us Keenan Goode MD LAB - PATHOLOGY/CYTOLOGY ORD ERABLES Final Result [facility] ACCOUNT BILL [address] [place] [address] from Last 3 Months or Most Recently Relevant to Health Maintenance Insurance [employer] [facility] SELF PAY NO INSURANCE Member Subscriber Plan / Payer (Ef fective for All Dates) Name:Tanja Walters Member ID:Not on file Relation to Subscriber:Not on file Name:TANJA WALTERS Subscriber ID:Not on file Address: [address] [place] [phone] Payer ID:Not on file Group ID:Not on file Type:Self Pay Address: [facility] [address] [employer] [place] [address]
[2025-03-13 10:16] VITALS: BP 126/84; PULSE 93
[2025-03-13 10:31] VITALS: BP 125/84; PULSE 90
[2025-03-13 10:36] VITALS: BP 125/84; BP 126/84; PULSE 90
[2025-03-13 10:40] LABS: Hematocrit 31.3 % (37.0-47.0); Hemoglobin 10.2 g/dL (12.0-15.0); Immature Granulocyte Percent A 0.4 % (0-0.5); Lymphocytes Absolute Auto 2.55 K/mm3 (0.9-3.2); Mean Corpuscular HGB Conc 32.6 g/dl (32-36); Mean Corpuscular Hemoglobin 31.9 pg (26-34); Mean Corpuscular Volume 97.8 fl (80-100); Nucleated Red Blood Cells Absolute Auto 0.000 K/mm3 (0.0-0.012); Nucleated Red Blood Cells Perc 0.0 % (0.0-0.2); Platelet Count Result 190 k/mm3 (150-375); Red Blood Count 3.20 M/mm3 (4.2-5.4); White Blood Count 8.3 K/mm3 (4.5-10.0)
[2025-03-13 10:46] LABS: Add Urine Microscopic? YES; Appearance Urine Cloudy (Clear); Glucose Urine UA Negative (Negative); Leukocyte Esterase Ur 1+ LEU/UL (Negative); Nitrate Urine Negative (Negative); Non Pathogenic Casts 0-2; Specific Grav Ur 1.017 (1.001-1.035)
[2025-03-13 10:49] LABS: Alanine Aminotransferase 14 U/L (6-35); Albumin Level 3.5 g/dL (3.5-5.1); Alkaline Phosphatase 125 U/L (38-126); Anion Gap 9 mmol/L (4-12); Aspartate Amino Transferase 26 U/L (14-36); Bilirubin,Total 0.2 mg/dL (0.2-1.3); Blood Urea Nitrogen 13 mg/dL (7-17); Calcium 9.4 mg/dL (8.4-10.2); Carbon Dioxide 18 mmol/L (22-30); Chloride 107 mmol/L (98-107); Estimated Glomerular Filt Rate > 60; Glucose 84 mg/dL (65-110); Potassium 4.0 mmol/L (3.4-5.0); Sodium 134 mmol/L (137-145); Total Protein 6.8 g/dL (6.3-8.2); Uric Acid 3.9 mg/dL (2.5-7.5)
--- NOTE | 2025-03-13 11:10 | PC.NURSE ---
Spoke with Dr. Diggs regarding patient's results of [facility] workup. BP and vital signs all within normal range. BP 120's/80's. FHR cat. 1 tracing with no decels noted. No contractions per toco. Reported lab results of ua, cmp, and cbc. OK to discharge per Dr. Diggs. Patient to be seen by Dr. Diggs tomorrow in office.
[2025-03-13 11:24] LABS: Total Protein Urine Random 21 mg/dL; Ur Ttl Prot Creatinine Ratio 0.24 mg/mg (0-0.20)
== END 2025-03-13 11:12 | disposition home or self-care (01) ==
LOC: ANHOBOP 09:48 → ANHLDR 09:54
PROVIDERS: PCP Obstetrics & Gynecology; Visit Provider Obstetrics & Gynecology
DX: O13.9 Gestational [pregnancy-induced] hypertension without significant proteinuria, unspecified trimester (principal); Z3A.00 Weeks of gestation of pregnancy not specified
CPT/HCPCS: 36415; 59025; 80053; 81001; 82570; 84156; 84550; 85025; 87086; 99199

== ENCOUNTER 2025-03-22 10:04 | Inpatient (IN) | payer OTHER, SELFPAY ==
--- NOTE | 2025-03-21 09:06 | P.HP_ITS ---
H&P: HPI History of Present Illness Date/Time: 03/21/25 09:06 Chief Complaint: Here for induction of labor Narrative: 34 y/o at 37 4/7 weeks with longstanding chronic hypertension. Her first labor was induced at 37 6/7 weeks, resulting in vaginal delivery of a girl weighing 5#5oz. That was complicated by chronic hypertension. In the current she has been taking low dose aspirin since 12 weeks. Anxiety is treated with sertraline 75 mg daily. NIPT low risk. Abnormal GCT, but normal 3hGTT. CFS neg in 2022. No headache, visual field change, or upper abdominal pain. Good movement. Our plan in this has been for early term delivery in the 37-38 week range with the goal of avoiding hypertensive complications. She understands risks/benefits to include the p ossibility of prematurity complications, and elects to proceed with induction of labor. Review of Systems Review of Systems: All systems reviewed & are unremarkable except as noted in HPI and below PMFSH Past Medical History Medical History FH: HTN (hypertension) IUGR (intrauterine growth restriction) Anxiety Family History Family History Father Hypertension Cerebrovascular accident Mother Anxiety Depression Grandparent TIA (transient ischemic attack) Lung cancer Sibling Mitral valve prolapse Social History Social History Smoking status: Never smoker Second hand tobacco smoke exposure: No Substance use: never Do You Feel Safe in your Home?: Yes Lack of Transportation: No Lack of Food: Never True Current Housing: I Have Housing Concerned About Future Housing: No Difficulty Paying Gas/Electric Bills: No Difficulty Paying for Meds: No Currently Unemployed: No Education: Associate Degree Difficulty w/ Childcare or Family Care: No Spiritual care concerns: No Meds Home Medications and Allergies Home Medications ?Medication ?Instructions ?Recorded ?Confirmed ?Type sertraline 50 mg tablet 50 mg PO DAILY 08/22/23 03/14/25 History aspirin 81 mg tablet 81 mg PO DAILY 03/09/25 03/14/25 History vit no.95-ferrous 1 tablet PO DAILY 03/09/25 03/14/25 History fumarate 28 mg-folic acid 800 mcg tablet () cholecalciferol (vitamin D3) 25 25 mcg PO DAILY 03/14/25 03/14/25 History mcg (1,000 unit) capsule Allergies Allergy/AdvReac Type Severity Reaction Status Date / Time No Known Allergies Allergy Verified 03/14/25 09:31 Exam Const: Orientation/consciousness: patient oriented x3 Other: Well-developed, well-nourished female in no acute distress. Neck: Thyroid: thyroid normal Lymphatic: no lymphadenopathy noted (in neck, axilla or inguinal nodes) Resp: Effort & Inspection: normal respiratory effort Auscultation: clear to auscultation bilaterally Cardio: Rate: regular rate Rhythm: regular rhythm Heart sounds: S1 normal heart sound present and S2 normal heart sound present GI: Other: ABD: Soft, nontender, nondistended, gravid. FHR auscultated. No guarding or rebound tenderness. No hepatosplenomegaly. : General: Yes no CVA tenderness Other: Cervix fingertip / 50 / -2 Back/Spine/Pelvis: Back: no CVA tenderness Skin: General skin exam: normal color and no rashes or lesions noted Neuro: General: patient oriented x3 Extrem: Other: Extremities: nontender with no edema Psych: Mental Status: mental status grossly normal Affect: normal affect Assessment and Plan Assessment and plan (1) Chronic hypertension affecting : Code(s): O10.919 - Unspecified pre-existing hypertension complicating , unspecified trimester Status: Acute Assessment and Plan: A: IUP at 37 4/7 weeks with chronic hypertension P: Have offered induction of labor vs expectant management. We have reviewed risks / benefits / alternatives as above, and she elects to undergo induction of labor. Plan Cervidil followed by oxytocin. Anticipate .
[2025-03-22] VITALS (150 sets, daily range): BP systolic 92–145; BP diastolic 53–91; PULSE 76–129; TEMP 36.2–37.2; O2SAT 97–100; BMI 34.1
--- NOTE | 2025-03-22 10:04 | LDADM ---
This patient, Tanja Walters, was admitted to Labor/Delivery/Recovery 104 on 03/22/25 at 10:04. Plans for labor, pain management and were discussed with patient. Patient/family oriented to hospital policies and general routines including ID bracelet, bed and alarms, visiting hours, pain management, procedures, bathroom and other care routines, personal items, smoking policy, room service/diet and guest tray routines, security routines, and visiting hours. Patient/Family are encouraged to report perceived risks to care and to ask questions if they do not understand what they are told or what they should do. See [employer] for further documentation.
--- OUTSIDE RECORDS SUMMARY | 2025-03-22 10:14 | XMS_ITS | Encounter Summary ---
Author Organization [facility] Address [address] [facility] [address] Care Team Providers Care Heavy Equipment Diesel Mechanic Name Role Phone Unavailable Primary Care Provider Unavailabl e Encounter Details Date Type Department Care Team (Late st Contact Info) Description 01/13/2016 Lab Requisition [facility] [address] [place] [address] Unknown, Provider Social History Tobacco Use Types [...] >165 index 01/15/2016 12:17 PM CDT [facility] ([facility]) Comment: Negative <135 Equivocal 135 - 165 Positive >165 A positive result generally indicates exposure to the pathogen or administration of specific immunoglobulins, but it is not indication of active infection or stage of disease. Blood specimen (specimen) BLOOD SPECIMEN / Unknown Venipuncture / Unknown 01/13/2016 11:20 AM CDT 01/13/2016 5:27 PM CDT Narrative [facility] ([facility]) - 01/15/2016 12:17 PM CDT Performed at: - [address] [id number] Travel Rn: Jeovanny Donaldson PhD, Phone: [phone] us Provider Unknown LAB - CHEMISTRY ORDERABLES Katia l [facility]) [address] [place] [address] documented in this encounter Visit Diagnoses Not on filedocumented in this encounter
--- OUTSIDE RECORDS SUMMARY | 2025-03-22 10:14 | XMS_ITS | Clinical Summary ---
Author Organization [facility] Address [address] [facility] [place] [address] Care Team Providers Care Atmospheric Physics Professor Name Role Phone Unavailable Primary Care Provider Unavailabl e Source Comments [facility],non-owned Affiliates and Associated Physician Practices is amultiple site organization consisting of ambulatory clinics and hospital sitesin [place], [place], [place] and [place]. This disclosure is being madepursuant to the Care Everywhere program and may not contain all information available regarding this patient. Last updated 18.[employer] [facility] Allergies No known active allergies Medications * [...] Performed by [facility] ACCOUNT BILL Comment:Lotus Morris, Sheet Ironworker (ASCP) Comment . [facility] ACCOUNT BILL Note [...] 9:18 AM CDT Source.............Cervix;Endocervix LMP / Prev Treat...[id number] No. of containers..01 CYTYC Thin Prep Vial Resulting Agency Comment [facility] [place] [address] [facility] [place] [phone] us Keenan Goode MD LAB - PATHOLOGY/CYTOLOGY ORD ERABLES Final Result [facility] ACCOUNT BILL [address] [place] [address] from Last 3 Months or Most Recently Relevant to Health Maintenance Insurance [employer] SELF PAY NO INSURANCE Member Subscriber Plan / Payer (Ef fective for All Dates) Name:Tanja Walters Member ID:Not on file Relation to Subscriber:Not on file Name:TANJA WALTERS Subscriber ID:Not on file Address: [address] [place] [phone] Payer ID:Not on file Group ID:Not on file Type:Self Pay Address: [facility] [address] [place] [address]
[2025-03-22 11:09] LABS: Hematocrit 34.1 % (37.0-47.0); Hemoglobin 11.2 g/dL (12.0-15.0); Immature Granulocyte Percent A 0.6 % (0-0.5); Lymphocytes Absolute Auto 2.24 K/mm3 (0.9-3.2); Mean Corpuscular HGB Conc 32.8 g/dl (32-36); Mean Corpuscular Hemoglobin 31.1 pg (26-34); Mean Corpuscular Volume 94.7 fl (80-100); Nucleated Red Blood Cells Absolute Auto 0.000 K/mm3 (0.0-0.012); Nucleated Red Blood Cells Perc 0.0 % (0.0-0.2); Platelet Count Result 221 k/mm3 (150-375); Red Blood Count 3.60 M/mm3 (4.2-5.4); White Blood Count 8.2 K/mm3 (4.5-10.0)
[2025-03-22] MEDS: LACTATED RINGERS 1,000 ML 125 ML IV CONT ×2 (11:41→15:41)
[2025-03-22] MEDS: OXYTOCIN 30 UNITS/NS 500 ML 30 UNITS/500 ML BAG IV CONT (11:41)
[2025-03-22 11:48] LABS: Syphilis IgG/IgM Antibody Non-Reactive (Nonreactive)
--- NOTE | 2025-03-22 12:49 | P.PNAN_ITS ---
Anes - Eval Pre Procedure Procedure: Labor epidural Date/Time: 03/22/25 12:49 Surgeon: Dontae Preop Diagnosis: Pain during labor Pre Op Diagnosis: Induction of Labor Patient Data Age: 34 Gender: F Height: Weight: Last Vital Signs Pulse 104 H 03/22/25 12:46 BP 128/89 03/22/25 12:46 Allergies Allergy/AdvReac Type Severity Reaction Status Date / Time No Known Allergies Allergy Verified 03/14/25 09:31 Home Medications ?Medication ?Instructions ?Recorded ?Confirmed ?Type sertraline 50 mg tablet 50 mg PO DAILY 08/22/23 03/14/25 History aspirin 81 mg tablet 81 mg PO DAILY 03/09/25 03/14/25 History vit no.95-ferrous 1 tablet PO DAILY 03/09/25 03/14/25 History fumarate 28 mg-folic acid 800 mcg tablet () cholecalciferol (vitamin D3) 25 25 mcg PO DAILY 03/14/25 03/14/25 History mcg (1,000 unit) capsule Laboratory Tests 03/22/25 10:39 WBC 8.2 K/mm3 (4.5-10.0) RBC 3.60 L M/mm3 (4.2-5.4) Hgb 11.2 L g/dL (12.0-15.0) Hct 34.1 L % (37.0-47.0) MCV 94.7 fl (80-100) MCH 31.1 pg (26-34) MCHC 32.8 g/dl (32-36) RDW 12.6 % (11.5-14.5) Plt Count 221 k/mm3 (150-375) MPV 11.1 H fl (7.4-10.4) Immature Gran % (Auto) 0.6 H % (0-0.5) Neut % (Auto) 63.9 % (45.5-73.1) Lymph % (Auto) 27.3 % (18.3-44.2) [place] % (Auto) 7.8 % (2.6-8.5) Eos % (Auto) 0.2 % (0-4.4) Baso % (Auto) 0.2 % (0.2-1.2) Lymph # (Auto) 2.24 K/mm3 (0.9-3.2) [place] # (Auto) 0.6 K/mm3 (0.1-0.6) Eos # (Auto) 0.0 K/mm3 (0-0.3) Baso # (Auto) 0.0 K/mm3 (0.0-0.1) Abs Immat Gran (auto) 0.05 H K/mm3 (0.00-0.031) Absolute Neuts (auto) 5.2 K/mm3 (1.3-6.7) Absolute Nucleated RBC 0.000 K/mm3 (0.0-0.012) Nucleated RBC % 0.0 % (0.0-0.2) Syphilis IgG/IgM Ab Non-reactive (Nonreactive) Blood Type O Positive Antibody Screen Negative Patient hx anesthesia problems: none Family hx anesthesia problems: none Results Review: All pre-operative results and documents have been reviewed as part of the pre- operative evaluation. [facility] Past Medical History Medical History FH: HTN (hypertension) IUGR (intrauterine growth restriction) Anxiety Family History Family History Father Hypertension Cerebrovascular accident Mother Anxiety Depression Grandparent TIA (transient ischemic attack) Lung cancer Sibling Mitral valve prolapse Social History Social History Smoking status: Never smoker Second hand tobacco smoke exposure: No Substance use: never Do You Feel Safe in your Home?: Yes Lack of Transportation: No Lack of Food: Never True Current Housing: I Have Housing Concerned About Future Housing: No Difficulty Paying Gas/Electric Bills: No Difficulty Paying for Meds: No Currently Unemployed: No Education: Associate Degree Difficulty w/ Childcare or Family Care: No Spiritual care concerns: No Exam Day of Procedure 03/22/25 12:49 Patient weight: overweight Heart: regular rate and rhythm Lungs: clear to auscultation Airway: Mallampati scale class II Neurological: alert and oriented
--- NOTE | 2025-03-22 13:12 | PM.OBPNLAB ---
Pain Control Date/time seen: 03/22/25 1230 Feeling contractions. Pelvic Exam Dilation (cm): 2 Effacement (%): 50 station: -2 Comments: AROM with clear fluid. Contractions Monitor mode: External Contraction frequency: 3 Status status: Category l Assessment and Plan Comments: Continue labor induction with oxytocin. Anticipate .
[2025-03-22] MEDS: SODIUM CHLORIDE 0.9% IV 300 ML 600 ML I-UTERINE (20:57)
[2025-03-22] MEDS: OXYTOCIN 30 UNITS/NS 500 ML 30 UNITS/500 ML BAG 999 UNITS IV CONT (22:39)
--- NOTE | 2025-03-22 23:01 | PM.OBPRVD ---
OB - Vaginal Delivery Note Procedure Delivery date: 03/22/25 Events: Chronic Hypertension Induction method: Per Pitocin Protocol Delivery augmentation: Rupture of Membranes Delivery monitor: External FHT, External Uterine and Internal Uterine Route of delivery: Episiotomy description: None Laceration Description: Perineal - 2nd Degree Delivery repair: vicryl (3-0) Specimen: Yes (cord blood, placenta) Quantitative Blood Loss (ml): 85 Anesthesia type: Epidural Disposition: PACU Complications: None Narrative: 34 y/o at 37 5/7 weeks gestation who presented to the hospital for induction of labor for chronic hypertension complicating . Oxytocin was administered intravenously. Amniotomy was performed with return of clear fluid. She received an epidural for pain control. Her labor progressed and her cervix dilated completely. She pushed with good effort and delivered the infant's head to the perineum, followed by the body. The nose and mouth were bulb suctioned. After a delay, the cord was clamped and cut. The infant was handed off the field. Cord blood was collected. The placenta delivered spontaneously and was grossly normal in appearance. The usual 3 vessel cord was noted. A second degree midline perineal laceration was sustained. This was reapproximated using 3 0 Vicryl in the usual layered fashion. Excellent hemostasis resulted as did excellent reapproximation of the normal anatomy. Needle and instrument counts were correct. The patient was taken to recovery room in stable condition. The went to the nursery in stable condition. I was present and scrubbed for the entire delivery. [place] Baby Date of : 03/22/25 Time of : 22:35 Gestational Age by Date: 37 Infant gender: Male presentation: vertex position: Left Occiput Anterior Placenta delivery description: Spontaneous and Normal Configuration Cord Vessel Description: 3 Vessels and Delayed Cord Clamping score one minute: 9 score five minutes: 9
[2025-03-22] MEDS: OXYTOCIN 30 UNITS/NS 500 ML 30 UNITS/500 ML BAG 125 UNITS IV CONT (23:15)
[2025-03-23] VITALS (11 sets, daily range): BP systolic 110–139; BP diastolic 68–88; PULSE 75–87; RESP 16–18; TEMP 36.6–37.3; O2SAT 95–100
[2025-03-23] MEDS: ACETAMINOPHEN 325 MG TABLET 650 MG PO ×4 (00:45→17:44)
[2025-03-23] MEDS: IBUPROFEN 600 MG TABLET PO ×4 (00:45→17:43)
[2025-03-23] MEDS: BENZOCAINE 20% AER SPR (*SP) 56 GM CAN 1 SPRAY TOPICAL (01:00)
[2025-03-23] MEDS: WITCH HAZEL 40 PADS 1 PAD TOPICAL (01:00)
[2025-03-23] MEDS: FAMOTIDINE 20 MG TABLET ×2 (04:39→19:18)
[2025-03-23 05:58] LABS: Hematocrit 31.8 % (37.0-47.0); Hemoglobin 10.5 g/dL (12.0-15.0)
--- NOTE | 2025-03-23 10:04 | PM.OBPNVD ---
OB - PN: Subj Subjective Date/time seen: 03/23/25 10:04 Narrative: Pain OK. Peds has advised holding off on circ. OB - PN: Obj Data Labs 03/23/25 05:46 Labs: Laboratory Results - last 24 hr 03/22/25 03/23/25 10:39 05:46 WBC 8.2 RBC 3.60 L Hgb 11.2 L 10.5 L Hct 34.1 L 31.8 L MCV 94.7 MCH 31.1 MCHC 32.8 RDW 12.6 Plt Count 221 MPV 11.1 H Immature Gran % (Auto) 0.6 H Neut % (Auto) 63.9 Lymph % (Auto) 27.3 [place] % (Auto) 7.8 Eos % (Auto) 0.2 Baso % (Auto) 0.2 Lymph # (Auto) 2.24 [place] # (Auto) 0.6 Eos # (Auto) 0.0 Baso # (Auto) 0.0 Abs Immat Gran (auto) 0.05 H Absolute Neuts (auto) 5.2 Absolute Nucleated RBC 0.000 Nucleated RBC % 0.0 Syphilis IgG/IgM Ab Non-reactive Blood Type O Positive Antibody Screen Negative OB - PN A/P Plan Comments: A: PPD#1, doing well. CHTN stable no meds. P: Routine care. Home tomorrow to f/u 6 weeks. Exam Psych: Other: AVSS ABD soft, nontender, fundus firm EXT nontender
[2025-03-23] MEDS: DOCUSATE SODIUM 100 MG CAPSULE PO (11:56)
[2025-03-23] MEDS: SERTRALINE HCL 50 MG TABLET PO (21:15)
[2025-03-24 07:45] VITALS: BP 107/61; PULSE 65; RESP 14; TEMP 36.6; O2SAT 97
--- NOTE | 2025-03-24 07:48 | PM.OBDSVD ---
DS: Admitting Diagnosis Discharge Date 03/24/25 <Shannan Hernandez MD - Last Filed: 03/24/25 10:28> Admitting Diagnosis IUP at 37 5/7 weeks Chronic hypertension <Ruperto Diggs MD - Last Filed: 03/23/25 10:06> DS: Discharge Diagnosis Discharge Diagnosis (1) (normal spontaneous vaginal delivery): Code(s): O80 - Encounter for full-term uncomplicated delivery <Ruperto Diggs MD - Last Filed: 03/23/25 10:06> Status: Acute <Ruperto Diggs MD - Last Filed: 03/23/25 10:06> (2) Chronic hypertension affecting : Code(s): O10.919 - Unspecified pre-existing hypertension complicating , unspecified trimester <Ruperto Diggs MD - Last Filed: 03/23/25 10:06> Status: Acute <Ruperto Diggs MD - Last Filed: 03/23/25 10:06> OB - DS: Summary OB Procedures : PIH Mgmt <Ruperto Diggs MD - Last Filed: 03/23/25 10:06> Ultrasound <Shannan Hernandez MD - Last Filed: 03/24/25 10:28> OB Procedures Intrapartum: Spontaneous Vag Delivery <Ruperto Diggs MD - Last Filed: 03/23/25 10:06> OB Procedures: : None <Ruperto Diggs MD - Last Filed: 03/23/25 10:06> Peripartum Data Delivery Method: Natural Vaginal <Shannan Hernandez MD - Last Filed: 03/24/25 10:28> Laceration Description: Perineal - 2nd Degree <Ruperto Diggs MD - Last Filed: 03/23/25 10:06> Episiotomy description: None <Ruperto Diggs MD - Last Filed: 03/23/25 10:06> [place] 1: Gender: Male <Shannan Hernandez MD - Last Filed: 03/24/25 10:28> Disposition of : home <Shannan Hernandez MD - Last Filed: 03/24/25 10:28> Status at Discharge Functional status at discharge: independent ambulation <Shannan Hernandez MD - Last Filed: 03/24/25 10:28> Overall status at discharge: patient is back to baseline <Shannan Hernandez MD - Last Filed: 03/24/25 10:28> Time Spent with Patient Time attestation: Total time spent providing and/or coordinating discharge services: <Ruperto Diggs MD - Last Filed: 03/23/25 10:06> Exam Const: General: cooperative, comfortable and no acute distress <Shannan Hernandez MD - Last Filed: 03/24/25 10:28> Orientation/consciousness: patient oriented x3 <Shannan Hernandez MD - Last Filed: 03/24/25 10:28> Resp: Effort & Inspection: normal respiratory effort <Shannan Hernandez MD - Last Filed: 03/24/25 10:28> Auscultation: clear to auscultation bilaterally <Shannan Hernandez MD - Last Filed: 03/24/25 10:28> Cardio: Rate: regular rate <Shannan Hernandez MD - Last Filed: 03/24/25 10:28> GI: Inspection: non-distended <Shannan Hernandez MD - Last Filed: 03/24/25 10:28> GI Palp: No abdominal tenderness and Yes Soft to palpation <Shannan Hernandez MD - Last Filed: 03/24/25 10:28> Auscultation: normal bowel sounds <Shannan Hernandez MD - Last Filed: 03/24/25 10:28> : Other: fundus firm <Shannan Hernandez MD - Last Filed: 03/24/25 10:28> Skin: General skin exam: normal color <Shannan Hernandez MD - Last Filed: 03/24/25 10:28> Neuro: General: patient oriented x3 <Shannan Hernandez MD - Last Filed: 03/24/25 10:28> Extrem: General: normal to inspection <Shannan Hernandez MD - Last Filed: 03/24/25 10:28> Psych: Appearance: grossly normal <Shannan Hernandez MD - Last Filed: 03/24/25 10:28> Affect: normal affect <Shannan Hernandez MD - Last Filed: 03/24/25 10:28> Attitude: cooperative <Shannan Hernandez MD - Last Filed: 03/24/25 10:28> DS: Data Data Completed and Pending Labs on day of discharge: Labs from last 24 hours 03/22/25 10:39 WBC 8.2 RBC 3.60 L Hgb 11.2 L Hct 34.1 L MCV 94.7 MCH 31.1 MCHC 32.8 RDW 12.6 Plt Count 221 MPV 11.1 H Immature Gran % (Auto) 0.6 H Neut % (Auto) 63.9 Lymph % (Auto) 27.3 [place] % (Auto) 7.8 Eos % (Auto) 0.2 Baso % (Auto) 0.2 Lymph # (Auto) 2.24 [place] # (Auto) 0.6 Eos # (Auto) 0.0 Baso # (Auto) 0.0 Abs Immat Gran (auto) 0.05 H Absolute Neuts (auto) 5.2 Absolute Nucleated RBC 0.000 Nucleated RBC % 0.0 Syphilis IgG/IgM Ab Non-reactive Blood Type O Positive Antibody Screen Negative <Ruperto Diggs MD - Last Filed: 03/23/25 10:06> Discharge Plan Discharge Attending physician on discharge: Ruperto Diggs <Ruperto Diggs MD - Last Filed: 03/23/25 10:06> Ruperto Diggs <Shannan Hernandez MD - Last Filed: 03/24/25 10:28> Discharging Clinician: Ruperto Diggs <Ruperto Diggs MD - Last Filed: 03/23/25 10:06> Ruperto Diggs <Shannan Hernandez MD - Last Filed: 03/24/25 10:28> Anticipated Discharge Date/Time: 03/24/25 11:00 <Ruperto Diggs MD - Last Filed: 03/23/25 10:06> Patient Disposition: Home <Ruperto Diggs MD - Last Filed: 03/23/25 10:06> Activity: pelvic rest <Ruperto Diggs MD - Last Filed: 03/23/25 10:06> pelvic rest <Shannan Hernandez MD - Last Filed: 03/24/25 10:28> Diet: regular <Ruperto Diggs MD - Last Filed: 03/23/25 10:06> regular <Shannan Hernandez MD - Last Filed: 03/24/25 10:28> Discharge Instructions: Call or return if temperature above 100.4? F, increased abdominal pain, increased vaginal bleeding or any new problems. <Ruperto Diggs MD - Last Filed: 03/23/25 10:06> Patient Language: Georgian <Ruperto Diggs MD - Last Filed: 03/23/25 10:06> Stand Alone Forms: General Discharge Information <Ruperto Diggs MD - Last Filed: 03/23/25 10:06> Follow-up/Referrals: Ruperto Diggs MD [Physician] - 6 Weeks <Ruperto Diggs MD - Last Filed: 03/23/25 10:06> Discharge Medications: New ibuprofen 600 mg tablet 600 mg PO Q6H PRN (Reason: cramps) Qty: 30 0RF hydrocodone-acetaminophen 5-325 mg tablet 1 tablet PO Q6H PRN (Reason: pain) Qty: 20 0RF Continued cholecalciferol (vitamin D3) 25 mcg (1,000 unit) capsule 25 mcg PO DAILY sertraline 50 mg tablet 50 mg PO DAILY PNV no.95-ferrous fumarate-FA [] 28 mg iron- 800 mcg tablet 1 tablet PO DAILY Discontinued aspirin 81 mg tablet 81 mg PO DAILY <Ruperto Diggs MD - Last Filed: 03/23/25 10:06> Date of admission: 03/22/25 10:04 <Ruperto Diggs MD - Last Filed: 03/23/25 10:06> Primary Care Provider: UNKNOWN,DOCTOR <Ruperto Diggs MD - Last Filed: 03/23/25 10:06> Admitting Provider: Ruperto Diggs <Ruperto Diggs MD - Last Filed: 03/23/25 10:06> Attending physician on admission: Ruperto Diggs <Ruperto Diggs MD - Last Filed: 03/23/25 10:06> Condition: Stable <Ruperto Diggs MD - Last Filed: 03/23/25 10:06>
[2025-03-24 09:00] VITALS: PULSE 65; RESP 14; O2SAT 97
[2025-03-24] MEDS: ACETAMINOPHEN 325 MG TABLET 650 MG PO ×2 (09:34→16:24)
[2025-03-24] MEDS: IBUPROFEN 600 MG TABLET PO ×2 (09:34→16:23)
[2025-03-24] MEDS: MULTIVIT/MIN/PREN/FOL AC/IRON TABLET 1 TAB PO (09:41)
[2025-03-24] MEDS: DOCUSATE SODIUM 100 MG CAPSULE PO (09:41)
--- NOTE | 2025-03-24 11:40 | PC.NURSE ---
Consulted with mother concerning needs and she shared her ability to independently latch infant optimally. She has some general nipple soreness and is using nipple cream. Mother is feeding appropriately for growth of and understands stimulating infant to eat if needed. Infant has had appropriate feedings in the last 24 hours meets the outcomes for weight, output, blood sugar and jaundice at this time. Reinforced understanding of signs of adequate intake, transition of stool, prevention/relief of engorgement, plugged ducts, mastitis, at least 8 times every 24 hours, community resources, and when to call a provider using the resource of the feeding sheet along with the mom and baby guide. Mother voiced understanding of the information shared, is confident to continue effectively her at home, when to call for assistance, denies any additional assistance or education at this time. Reported to the Primary RN.
[2025-03-26 12:36] VITALS: BP 125/81; PULSE 97; RESP 18; TEMP 36.9; O2SAT 98
== END 2025-03-24 19:15 | disposition home or self-care (01) | DRG 807 ==
LOC: ANHLDR 23:05 → ANHOB2 03-24 07:48 → ANHLDR 03-26 13:27 → ANHOB2 03-26 13:27
PROVIDERS: Admitting Provider Obstetrics & Gynecology; Visit Provider Obstetrics & Gynecology
DX: O10.92 Unspecified pre-existing hypertension complicating childbirth (principal); Z37.0 Single live birth; Z3A.37 37 weeks gestation of pregnancy; O70.1 Second degree perineal laceration during delivery; O99.344 Other mental disorders complicating childbirth; F41.9 Anxiety disorder, unspecified
CPT/HCPCS: 36415; 85014; 85018; 85025; 86593; 86850; 86900; 86901; A9270; J2590; J2795; J7030; J7120